=== PATIENT | female | born 1955 | race Caucasian/White ===

== ENCOUNTER → 2019-11-09 | Outpatient (CLI) | payer MEDICARE ==
[~2019-11-09] MED LIST: LIDOCAINE HCL 4% LTA SOL 4 ML VIAL ONE
[2019-11-09 11:09] VITALS: BP 137/85
== END | disposition home or self-care (01) ==
LOC: WHH 08:30
PROVIDERS: ATTEND Surgery
DX: T81.31XA Disruption of external operation (surgical) wound, not elsewhere classified, initial encounter (principal); S61.452A Open bite of left hand, initial encounter; D86.9 Sarcoidosis, unspecified; G62.9 Polyneuropathy, unspecified; M79.7 Fibromyalgia; M81.0 Age-related osteoporosis without current pathological fracture; M86.9 Osteomyelitis, unspecified; W55.01XA Bitten by cat, initial encounter; Y93.89 Activity, other specified; Y99.8 Other external cause status; Y83.8 Other surgical procedures as the cause of abnormal reaction of the patient, or of later complication, without mention of misadventure at the time of the procedure; Y92.89 Other specified places as the place of occurrence of the external cause
CPT/HCPCS: 11042; A6021; G0463

== ENCOUNTER → 2019-11-16 | Outpatient (CLI) | payer MEDICARE ==
[2019-11-16 13:19] VITALS: BP 118/84
== END | disposition home or self-care (01) ==
LOC: WHH 08:30
PROVIDERS: ATTEND Surgery
DX: T81.31XD Disruption of external operation (surgical) wound, not elsewhere classified, subsequent encounter (principal); S61.452D Open bite of left hand, subsequent encounter; D86.9 Sarcoidosis, unspecified; G62.9 Polyneuropathy, unspecified; M79.7 Fibromyalgia; M81.0 Age-related osteoporosis without current pathological fracture; M86.9 Osteomyelitis, unspecified; W55.01XD Bitten by cat, subsequent encounter; Y83.8 Other surgical procedures as the cause of abnormal reaction of the patient, or of later complication, without mention of misadventure at the time of the procedure
CPT/HCPCS: 11042; A6021

== ENCOUNTER → 2019-11-23 | Outpatient (CLI) | payer MEDICARE ==
[2019-11-23 14:24] VITALS: BP 159/89
== END | disposition home or self-care (01) ==
LOC: WHH 11:30
PROVIDERS: ATTEND Surgery
DX: T81.31XD Disruption of external operation (surgical) wound, not elsewhere classified, subsequent encounter (principal); S61.452D Open bite of left hand, subsequent encounter; G62.9 Polyneuropathy, unspecified; D86.9 Sarcoidosis, unspecified; M79.7 Fibromyalgia; M81.0 Age-related osteoporosis without current pathological fracture; M86.9 Osteomyelitis, unspecified; W55.01XA Bitten by cat, initial encounter; Y83.8 Other surgical procedures as the cause of abnormal reaction of the patient, or of later complication, without mention of misadventure at the time of the procedure
CPT/HCPCS: A6021; G0463